=== PATIENT | male | born 1995 | race Caucasian/White ===

== ENCOUNTER 2017-10-18 16:06 | Emergency (ER) | payer OTHER ==
[~2017-10-18] VITALS: Ht 180.3 cm; Wt 66.4 kg
[2017-10-18 17:58] VITALS: BP 112/62
== END 2017-10-18 18:00 | disposition home or self-care (01) ==
LOC: ED 17:55
DX: K64.4 Residual hemorrhoidal skin tags (principal)
CPT/HCPCS: 74021; 99284